=== PATIENT | female | born 1950 | race Caucasian/White ===

== ENCOUNTER → 2021-01-28 | Outpatient (CLI) | payer OTHER ==
[~2021-01-28] MED LIST: ALIGN10.5 MG PO; CLARITIN10 M3 PO; LYRICA 75 MG CA75 MG PO; MULTI VITAMIN1 EACH PO; TRAZODONE HCL50 MG PO; VITAMIN B-121000 MCG PO
== END | disposition home or self-care (01) ==
LOC: LAB 09:12 → GI 09:12 → LAB 11:46
PROVIDERS: ATTEND Specialist
DX: R13.10 Dysphagia, unspecified (principal); K22.10 Ulcer of esophagus without bleeding; R12 Heartburn; K44.9 Diaphragmatic hernia without obstruction or gangrene; Z98.890 Other specified postprocedural states; Z79.899 Other long term (current) drug therapy; Z20.822 Contact with and (suspected) exposure to COVID-19
CPT/HCPCS: 62110; 62900